=== PATIENT | male | born 1975 | race Caucasian/White ===

== ENCOUNTER 2019-08-03 17:02 | Inpatient (IN) | payer BC ==
[~2019-08-03] VITALS: Ht 185.4 cm; Wt 78.6 kg
[2019-08-03] MEDS ORDERED: TYLENOL 325MG325 MG PO (17:51)
[2019-08-03] MEDS ORDERED: BANOPHEN25 M1 PO (17:52)
[2019-08-03] MEDS ORDERED: DULCOLAX STOOL100 MG PO (17:53)
[2019-08-03] MEDS ORDERED: PEPCID 20MG TAB20 MG PO (17:54)
[2019-08-03] MEDS ORDERED: NEURONTIN100 MG/CAP PO (17:54)
[2019-08-03] MEDS ORDERED: HEPARIN SOD5000 U/ML SQ (17:55)
[2019-08-03] MEDS ORDERED: HEPARIN 100U100 U/M1 IV (17:57)
[2019-08-03] MEDS ORDERED: ATARAX 10MG10 MG/TAB PO (17:58)
[2019-08-03] MEDS ORDERED: ATROVENT I0.2 MG/1 M IH (18:00)
[2019-08-03] MEDS ORDERED: NARCAN .4MG0.4 MG/ML IV (18:01)
[2019-08-03] MEDS ORDERED: LIQUIFILM TEARS15 ML OU (18:03)
[2019-08-03] MEDS ORDERED: ROXICODONE15 MG PO (18:04)
[2019-08-03] MEDS ORDERED: LEADER CLE17 GM/Dose PO (18:06)
[2019-08-03] MEDS ORDERED: ROXICODONE 55 MG/TAB PO (18:06)
[2019-08-03] MEDS ORDERED: KLOR-CON20 MEQ PO (18:07)
[2019-08-03] MEDS ORDERED: SEROQUEL50 MG PO (18:08)
[2019-08-03] MEDS ORDERED: SENNA-LAX8.6 MG PO (18:08)
--- NOTE | 2019-08-03 20:01 | NUR ---
Received report from Carlos TRAVIS from [facility] in [place]. Patient is on contact isolation precautions with MRSA in his wounds. Room has been set up for patient. He will be leaving [place] at approximatly 5:30 PM and should take 2 to 2 1/2 hours. Awaiting patient to arrive.
[2019-08-03 20:55] VITALS: BP 147/92; PULSE 108; TEMP 98
--- NOTE | 2019-08-03 20:55 | NUR ---
ADMITTED TO ROOM VIA CHAIR, PATIENT TRANSPORTED VIA PRIVATE CAR FROM [place], MOTHER, CHUY BEAR, PRESENT. INSTRUCTED PRESS SETUP OPERATOR LIGHT. BED ALARM ENGAGED.
--- NOTE | 2019-08-04 03:42 | NUR ---
Assisted patient with gown and top linen/bedspread/blanket change due to spill of urine from using urinal while in bed. Patient repositioned with ease from side to side with skin care performed both independently and partial assist from nurse. Bed alarm on, no other needs reported.
[2019-08-04 04:47] VITALS: BP 128/88; PULSE 109; TEMP 98.1
[2019-08-04 05:37] VITALS: BP 128/88; PULSE 109; TEMP 98.1
--- NOTE | 2019-08-04 08:10 | NUR ---
PATIENT RESTING IN BED DURING SHIFT CHANGE REPORT TO DAY SHIFT NURSE. WITH NONLABORED/EVEN BREATHING AND BED ALARM ENGAGED.
--- NOTE | 2019-08-04 10:47 | NUR ---
Report from ANGY Oviedo. Pt on isolation precautions for MRSA. Quiet, but answers questions appropriately, bedrested after morning therapy, BLE aces wraps intact. Takes pills with thin liquids, yellow grippers and gown in place.
--- NOTE | 2019-08-04 11:41 | NUR ---
CHENTE met with the patient to complete initial intake, as the patient is new to [facility]. The patient lives alone in [place]. He states that his mother, Alia (ph#[phone]), also lives in [place]. He reports independence with ADLs prior to hospitalization and has a walker. The patient's PCP is Dr. Hunter in [place] and he receives his medications at [facility] in [place]. He reports no difficulties obtaining his meds. The patient does not have advanced directives in EMR, but he states that he thinks he has them completed. He states that his DPOA-HC would be his mother. CHENTE discussed having a family meeting. A family meeting with his mother was set up for tomorrow at 1300. CHENTE informed [facility] D[facility] and will continue to follow.
[2019-08-04 18:03] VITALS: BP 128/82; PULSE 87; TEMP 98.4
--- NOTE | 2019-08-04 21:32 | NUR ---
Clarified skin graft orders with surgeon's nurse. RLE: did not remove the silver gauze (Transfer Ag) as directed. Wrapped from foot to groin with kerlix and laurita, heel protectors placed BLE. Applied xeroform gauze to LLE skin graft sites, wound beds are moist to dry without slough or foul odor, some drainage.
[2019-08-05 05:19] VITALS: BP 125/86; PULSE 80; TEMP 98.3
--- NOTE | 2019-08-05 06:30 | NUR ---
VOIDED LG AMTS VIA URINAL. PAIN LEVEL 8/10 TO LEGS. REVIEWED THERAPY SCHEDULE WITH PT. NO NEEDS AT THIS TIME.
--- NOTE | 2019-08-05 09:37 | NUR ---
Report from ANGY Santiago. Pt in bed for breakfast, pillow under BLE, wraps to BLE intact, glasses and yellow gown/gripper socks in place, call lt in reach. Scheduled pain meds given, brought oral care items to bedside tray and pt indep with that. Urinals at bedside.
[2019-08-05 13:36] LABS: BASO # 0.1 (0.0-0.2); BASO % 0.6 % (0.0-2.0); EOS # 0.4 (0.0-0.7); EOS % 3.9 % (0-4.0); LYMPH # 0.9 (1.2-3.4); LYMPH % 10.2 % (20.0-51.0); MEAN CELL VOLUME 94 fl (80.0-100.0); MEAN CORPUSCULAR HGB CONC 32 g/dl (33.0-37.0); MEAN PLATELET VOLUME 9.1 fl (7.4-10.4); MONO # 0.6 (0.1-0.6); MONO % 6.9 % (1.7-9.3); PLATELET COUNT 485 K/mm3 (130-400); RED BLOOD COUNT 2.43 M/mm3 (4.20-5.60); REDCELL DISTRIBUTION WIDTH-CV 14.7 % (11.5-14.5)
[2019-08-05 13:37] LABS: HEMATOCRIT 22.8 % (42.0-52.0); HEMOGLOBIN 7.3 g/dl (13.5-18.0); MEAN CORPUSCULAR HEMOGLOBIN 30 pg (27.0-31.0)
[2019-08-05 13:51] LABS: BILIRUBIN,TOTAL 0.4 mg/dL (0.0-1.0); CREATININE, serum 1.53 (0.66-1.25); POTASSIUM 4.2 mmol/L (3.4-5.0); TOTAL PROTEIN 7.2 gm/dL (6.4-8.2)
--- NOTE | 2019-08-05 14:14 | NUR ---
SW attended a family meeting with the patient, patient's mother (Aila), and grandmother. Also present was IPR Director, PT, & OT. IPR Director started by explaining the purpose of the meeting. PT & OT then discussed the patient's progress. The patient and his mother report that their goal is getting up stairs. She also states that the patient would be able to stay at her house, if the patient was unable to be home alone. IPR Director informed them that they would re-eval the patient on Thursday during team meeting. The patient and his mother were in agreeance to this. All questions were answered by the team. SW to continue to follow.
[2019-08-05 16:36] VITALS: BP 122/88; PULSE 93; TEMP 97.7
--- NOTE | 2019-08-05 20:49 | NUR ---
Joseph without complications, changed dressing to it today. Changed dressings to BLE. Dr. Tinsley to follow for ID. Bedside report to ANGY Jay.
--- NOTE | 2019-08-05 21:00 | NUR ---
HS meds all reviewed and given. Patient up to BSC with observation/set up and manages all toileting tasks. Had med soft bm. BLE elevated on pillows. Dressings to BLE CDI.
--- NOTE | 2019-08-05 22:30 | NUR ---
Patient rests with eyes closed. Respirations with ease.
--- NOTE | 2019-08-06 02:57 | NUR ---
Patient rests in bed with eyes closed. Respirations with ease.
[2019-08-06 06:34] VITALS: BP 122/83; PULSE 85; TEMP 98.1
--- NOTE | 2019-08-06 08:25 | NUR ---
Patient resting in bed at this time, call light in reach and relaxing in bed at this time. Denies questions at this time.
--- NOTE | 2019-08-06 17:44 | NUR ---
Dressing changed to bilateral legs this afternoon. Patient tolerated well.
[2019-08-06 18:26] VITALS: BP 115/90; PULSE 111; TEMP 100.4
--- NOTE | 2019-08-06 19:46 | NUR ---
Patient resting in bed at this time, slip proof socks on, call light in reach and watching TV at this time. He was a one assist to the bathroom using gait belt and walker. Patient denies any questions at this time. Reported off to night nurse.
--- NOTE | 2019-08-06 21:30 | NUR ---
Patient awakened for HS meds and all reviewed and given. Dressing change done via sterile procedure to stokes central line. Patient up standby assist with walker to the bathroom and manages all toileting tasks then rests self back in bed. Snack of icecream and sprite given.
--- NOTE | 2019-08-07 02:58 | NUR ---
Patient rests with eyes closed. Respirations with ease.
[2019-08-07 05:42] VITALS: BP 127/86; PULSE 97; TEMP 98.1
--- NOTE | 2019-08-07 10:30 | NUR ---
PT CALLS FOR ASSIST TO BR. VOIDS AND RETURNS TO BED. ASSESSMENT COMPLETED EARLIER. WRAPS FROM ANKLE TO THIGH ON RIGHT LEG. LEFT LEG IWRAPPED FROM KNEE TO THIGH. PAIN IS 8/10 AT ALL TIMES, KIND OF A DULL ACHE, PER PT. ROJAS DRESSING IS CDI. DRESSING TO LOWER BACK IS CDI. GAIT STEADY.
--- NOTE | 2019-08-07 12:42 | NUR ---
GAIT STEADY WITH GAITBELT AND WALKER. PAIN REMAINS AT 8/10. CONTINUOUSLY
[2019-08-07 16:47] VITALS: BP 129/82; PULSE 104; TEMP 99.6
--- NOTE | 2019-08-07 19:28 | NUR ---
Lying in bed with eyes open. Having some pain in legs. Dressings to bilat lower extremities CDI. Patient denies additional needs at this time.
--- NOTE | 2019-08-07 21:56 | NUR ---
Patient is due to have caps to central line in right upper chest changed. Caps changed times two and flushed without difficulty. Patient tolerates without issues.
--- NOTE | 2019-08-08 00:29 | NUR ---
Lying in bed in supine position with eyes closed. Respirations even and unlabored. Opens eyes when name called out. Rates pain in left leg 8/10 and describes as achy. Administered scheduled medications as prescribed. Patient denies further needs at this time.
--- NOTE | 2019-08-08 02:29 | NUR ---
Lying supine in bed with eyes closed. Respirations even and unlabored. No signs or symptoms of discomfort noted at this time.
--- NOTE | 2019-08-08 03:40 | NUR ---
Lying in bed with eyes closed, respirations even and unlabored. Patient opens eyes when name called out. Rating pain 8/10 in left thigh and describes as achy. Explained to the patient that he will be due for next pain medication around 0515. Patient denies further needs at this time.
[2019-08-08 03:41] VITALS: BP 129/87; PULSE 98; TEMP 97.4
--- NOTE | 2019-08-08 05:30 | NUR ---
Lying in bed with eyes closed. Eyes open when name called out. Continues to rate pain 8/10 in left thigh and describes the pain as an ache. Administered scheduled medication. Asked patient if he would like to get into chair this morning and the patient declines. Patient denies further needs at this time.
[2019-08-08 08:20] LABS: MEAN CELL VOLUME 93 fl (80.0-100.0); MEAN CORPUSCULAR HGB CONC 31 g/dl (33.0-37.0); MEAN PLATELET VOLUME 9.1 fl (7.4-10.4); PLATELET COUNT 501 K/mm3 (130-400); RED BLOOD COUNT 2.59 M/mm3 (4.20-5.60); REDCELL DISTRIBUTION WIDTH-CV 14.7 % (11.5-14.5)
[2019-08-08 08:22] LABS: HEMATOCRIT 24.2 % (42.0-52.0); HEMOGLOBIN 7.6 g/dl (13.5-18.0); MEAN CORPUSCULAR HEMOGLOBIN 29 pg (27.0-31.0)
[2019-08-08 08:32] LABS: ALANINE AMINOTRANSFERASE < 6 U/L (21-72); ALBUMIN 3.3 gm/dL (3.5-5.0); ALKALINE PHOSPHATASE 94 U/L (50-136); ANION GAP 9 mmol/L (7-16); AST,SGOT 24 U/L (15-37); BILIRUBIN,TOTAL 0.4 mg/dL (0.0-1.0); BLOOD UREA NITROGEN 21 mg/dL (9-20); C-REACTIVE PROTEIN 5.9 mg/dL (0.0-0.9); CALCIUM 8.9 mg/dL (8.4-10.2); CARBON DIOXIDE 30 mmol/L (22-30); CHLORIDE 101 mmol/L (98-107); CREATININE, serum 1.51 (0.66-1.25); GLUCOSE 115 mg/dL (74-106); POTASSIUM 4.3 mmol/L (3.4-5.0); SODIUM 140 mmol/L (137-145); TOTAL PROTEIN 7.9 gm/dL (6.4-8.2)
[2019-08-08 08:48] LABS: ERYTHROCYTE SEDIMENTATION RATE > 140 mm/hr (0-15)
[2019-08-08 09:20] LABS: BAND 4 % (0-10); EOSINOPHIL 4 % (0-4); LYMPHOCYTE 19 % (20.0-51.0); NEUTROPHILS 71 % (42.0-75.2)
[2019-08-08 09:21] LABS: PLATELET ESTIMATE INCREASED (NORMAL)
--- NOTE | 2019-08-08 12:22 | NUR ---
Layla was contacted regarding Ruiz Tunneled Catheter Dressing changes. The policy in [facility] had not been updated. See patient chart for corrected policy. Dressing was last changed on 08/06/19 and will be due to be changed again on 08/13/19 per the updated policy.
[2019-08-08 17:02] VITALS: BP 118/72; PULSE 102; TEMP 98.2
--- NOTE | 2019-08-09 01:09 | NUR ---
Resting with eyes closed, breathing nonlabored and even. Does not awaken with room entered. Continue contact isolation.
[2019-08-09 05:14] VITALS: BP 124/81; PULSE 92; TEMP 97.8
--- NOTE | 2019-08-09 07:18 | NUR ---
Patient resting in bed during shift change report given to day shift nurse. Patient continues to be mod I in room without problems.
--- NOTE | 2019-08-09 12:24 | NUR ---
Patient resting in bed at this time. Eating 90% of his meal. Continues to receive scheduled pain meds that are effective. Patient seems to sleep very easily, but continues to report pain at 8/10. Will continue to monitor.
[2019-08-09 16:19] VITALS: BP 127/80; PULSE 104; TEMP 99
--- NOTE | 2019-08-09 16:46 | NUR ---
Nurse faxed referral for PT/OT/Nursing to [facility]. SW to continue to follow.
--- NOTE | 2019-08-09 16:56 | NUR ---
CHENTE met with the patient and the patient's mother to present and discuss IPR Team Conference Note. The patient's anticipated discharge date is 08/12/19 with home health services with nursing, PT/OT. CHENTE presented [employer]'s list of home health agencies. The patient and his mother chose [facility]. CHENTE Aparna faxed referral. Awaiting response. There were no additional question and all were in agreeance. visitor services associate will continue to follow.
--- NOTE | 2019-08-09 20:00 | NUR ---
RESTING IN BED DURING SHIFT CHANGE REPORT FROM DAY SHIFT NURSE.
--- NOTE | 2019-08-09 22:09 | NUR ---
Patient will be discharged this Thursday. Patient requested that his bilateral legs be redressed every other day or every three days instead of daily. This nurse called Dr. Ferreira's office to ask this question. The office was closed for the holiday. Will leave a message for nurse to follow up with this later this week. Wounds are healing well, with some bloody drainage observed to bilateral legs. Will continue to monitor. Discussed pain meds with Dr. Fuentes as patient continues to say that his pain level is 8/10 at all times even when he wakes from his sleep. No signs of restlessness is observed when he reports the 8/[address] Fuentes said that he would visit with patient later this week to discuss these meds. Reported off to night nurse.
--- NOTE | 2019-08-10 05:00 | NUR ---
RESTING IN BED WITH EYES CLOSED, DOES NOT AWAKEN WHEN ROOM ENTERED. BREATHING NONLABORED AND EVEN.
[2019-08-10 05:19] VITALS: BP 121/81; PULSE 90; TEMP 97.6
--- NOTE | 2019-08-10 07:52 | NUR ---
PATIENT RESTING IN BED DURING SHIFT CHANGE REPORT GIVEN TO DAY SHIFT NURSE. PATIENT CONTINUES MOD I WITH NO PROBLEMS.
--- NOTE | 2019-08-10 08:00 | NUR ---
SEE MORNING SHIFT ASSESSMENT.
--- NOTE | 2019-08-10 15:10 | NUR ---
DRESSINGS REMOVED FROM BLE. PATIENT TOLERATED WELL. SILVER TRANSFER AG IN PLACE TO RIGHT LEG DONOR SITE. SCANT AMOUNT OF DRAINAGE PRESENT ON KERLIX FROM BOTH EXTREMITIES WHEN REMOVED. WILL LEAVE OPEN TO AIR AND RE-DRESS BOTH EXTREMITIES AFTER ALLOWING THEM TO AIR OUT.
--- NOTE | 2019-08-10 17:45 | NUR ---
DRESSINGS RE-APPLIED TO BLE. PATIENT TOLERATED WELL. NO OTHER NEEDS AT THIS TIME.
[2019-08-10 17:59] VITALS: BP 128/83; PULSE 98; TEMP 98.8
--- NOTE | 2019-08-10 20:06 | NUR ---
REPORT GIVEN TO ANGY VELA.
--- NOTE | 2019-08-10 21:30 | NUR ---
Patient modified independent in room with walker and reports he's doing well. Returns from the bathroom gait steady and rests back in bed. HS meds all reviewed and given. Takes snack of icecream and sprite.
--- NOTE | 2019-08-11 06:03 | NUR ---
Patient voiceing he's cold this am and grimacing. Afebrile offered home blanket and declined. Scheduled pain meds reviewed and given.
[2019-08-11 06:05] VITALS: BP 136/90; PULSE 95; TEMP 97.9
[2019-08-11 08:30] LABS: CALCIUM 8.8 mg/dL (8.4-10.2); CREATININE, serum 1.53 (0.66-1.25); POTASSIUM 3.9 mmol/L (3.4-5.0)
--- NOTE | 2019-08-11 12:36 | NUR ---
Visited w/ pt regarding d/c plans for 08/12/19. Discussed the need for continued IV therapy for the antibiotic. He asked some questions & stated he would prefer to do it at [facility]. SW did ask him when the last time he had used meth. He told SW it was about the first of June. Inquired how he does the meth & stated snorts it. 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 Asked how he usually obtains the meth & he stated from these guys. Asked about doing it once he returns home & stated he will not have the means, as he will not have any contact w/ these guys while he is at home. He also stated he has no desire to do them meth on his own.
--- NOTE | 2019-08-11 14:41 | NUR ---
The patient needs IV antibiotics. The patient would like to go to [facility] in [place] for outpatient IV antibiotic treatment and for dressing changes until 08/25/19. That is the day for the last dose. CHENTE contacted Faviola at [facility] and faxed referral. CHENTE contacted [facility] and they will be able to provide PT/OT services for the patient and after 08/25/19 they will provide dressing changes for the patient.
[2019-08-11 15:35] VITALS: BP 126/82; PULSE 100; TEMP 98.1
--- NOTE | 2019-08-11 22:31 | NUR ---
See SW Consult order for corrected last dose of IV Abx as 09/06/19. Reported to Pamela RN. Pt brianna mod I in rm w/ walker. Report to ANGY Crespo. Pt to receive IV abx at 1400 in hospital prior to discharge. Dressings changed to BLE after shift change. See new orders for dressing changes every other day- SW informed of this.
[2019-08-12 09:50] VITALS: BP 120/85; PULSE 89; TEMP 98.1
[2019-08-12] MEDS ORDERED: ROXICODONE15 MG PO (11:24)
[2019-08-12] MEDS ORDERED: VANCO 1.751.75 GM/50 IV (11:24)
--- NOTE | 2019-08-12 11:36 | NUR ---
The patient is to discharge home today, 08/12. The patient will receive IV antibiotics and wound care at [facility] beginning 08/13 and ending 09/06. The patient will receive PT/OT home health services with [facility]. Furthermore, on 09/06 will begin wound care with [facility]. CHENTE faxed orders to [facility] and to [facility]. There are no additional needs at this time.
--- NOTE | 2019-08-12 12:00 | NUR ---
Patient resting in bed at this time eating his lunch. He is independent in his room with his walker. Contines to have pain level of 8/10 and was given prn pain meds. Will continue to monitor. Discussed discharge plans and getting his IV Antibiotic started close to 2 PM today.
--- NOTE | 2019-08-12 13:57 | NUR ---
Discharge QIM scores were reviewed by the team. Code of 6 chosen for putting on/taking off footwear was determined by team discussion to be the most usual performance for this patient during the assessment period as he was independent in his room.--Alaina Martinez, PD
--- NOTE | 2019-08-12 14:30 | NUR ---
Patient given IV antibiotic and undressed his left leg to air out per patient request. Call placed to [facility] to discuss discharge orders for IV antibiotics and wound care. Copies of new typed and signed orders were faxed to [facility] to nolberto Sargent per their request. Patient was given a copy of these orders as well.
--- NOTE | 2019-08-12 17:30 | NUR ---
Measured wounds to Left Lower Extremity 33 cm anterior length; 24 cm width; 38 cm posteriior length. RLE wounds could not be measured - dressings were in place and not to be removed. The above measurements were communicated to Rosetta with [facility]. She voiced understanding. Rachael contact number is [phone].
--- NOTE | 2019-08-12 17:50 | NUR ---
Patient Health Summary, Discharge Summary, and Home Meds printed and reviewed with patient and mother. Stressed importance of follow up appointments. Reveiwed medications, provided printed prescriptions for Oxi and Vancomycin. Called prescriptions in for Gabapentin, Potassium Chloride, and Seroquel to pharmacy of choice. 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 Patient transported via wheelchair by ANGY/Gaby and seatbelted for ride home with mother. Patient and mother denied any questions.
--- NOTE | 2019-08-15 14:32 | NUR ---
The patient and the patient's mother contacted about changing PT/OT to the hospital vs with the home health agency. Since the patient is discharged the patient will need to go through his PCP. The patient was agreeable to this. There are no additional needs at this time.
== END 2019-08-12 17:40 | disposition home health service (06) | DRG 947 ==
PROVIDERS: Hospitalist; Internal Medicine Infectious Disease; ADMIT Internal Medicine
DX: R53.81 Other malaise (principal); M72.6 Necrotizing fasciitis; E43 Unspecified severe protein-calorie malnutrition; M86.9 Osteomyelitis, unspecified; N17.9 Acute kidney failure, unspecified; N18.9 Chronic kidney disease, unspecified; G72.9 Myopathy, unspecified; Z85.47 Personal history of malignant neoplasm of testis; Z92.21 Personal history of antineoplastic chemotherapy; Z79.891 Long term (current) use of opiate analgesic; Z68.23 Body mass index [BMI] 23.0-23.9, adult
CPT/HCPCS: 99222-AI; 99231-AI; 99239; J1644; J3370; J7040